=== PATIENT | male | born 1970 | race Caucasian/White ===

== ENCOUNTER 2016-10-16 08:32 | Emergency (ER) | payer OTHER ==
--- NOTE | 2016-10-16 09:33 | ED NURSING NOTES ---
Clinical Report - Nurses [address] [place] [address] 10/16/2016 8:33 [id number] Triage time 08:40. Acuity: LEVEL 4. Chief Complaint: FALL (stepped back into a hole a trailer and fell backwards). Alert. No acute distress. KENDRICK COMA SCORE: Hernando Coma Scale: 15- eyes open spontaneously (4); best verbal response- oriented x 4 (5); best motor response- obeys commands (6). --08:47 Georgina Gilmore R.N. 08:40 10/16/16. BP: 135/79. HR: 78. RR: 18. O2 saturation: 98% on room air. Temp: 98.1 F (oral). Pain level now: 01/22. --08:47 Georgina Gilmore R.N. Weight: 127 kg stated. Height/Length: 68 inches Per Patient. BMI: 42.6. --08:44 Georgina Gilmore R.N. Medications Atenolol Oral 100 mg, daily. Hydrochlorothiazide Oral 25 mg, daily. Lisinopril Oral 40 mg, daily. --08:43 Georgina Gilmore R.N. Medication/allergy information source: the patient. --08:47 Georgina Gilmore R.N. Allergies No Known Drug Allergy. --08:43 Georgina Gilmore R.N. History Arrived by private vehicle. Historian: patient. Primary physician (Alvin). Location of injuries: lower back and left leg. This occurred today (0230). Occurred at work. ( had his hard-hat on, fell 1-2 feet). No loss of consciousness. SOCIAL HX: Smoker- current status unknown (chews tobacco). Occasional alcohol use. No drug use. FALL RISK ASSESSMENT: Fall risk assessment completed. No fall risk identified. FUNCTIONAL ASSESSMENT: Functional assessment: no impairments noted. LEARNING NEEDS ASSESSMENT: The learning needs assessment revealed no barriers. --08:47 Georgina Gilmore R.N. PROBLEMS: Myofascial Strain. Substance Abuse. Hypovolemia. Renal Failure. Rhabdomyolysis. Hypertension. --08:44 Georgina Gilmore R.N. ADDITIONAL SURGERIES: Hemorrhoidectomy. Knee Surgery. --08:44 Georgina Gilmore R.N. Assessment GENERAL / NEURO / PSYCH: Alert. Oriented X 4. Appears in no acute distress. Patient appears calm and cooperative. RESPIRATORY: Respirations not labored. SKIN: Skin is warm and dry. --08:47 Georgina Gilmore R.N. Interventions ID band on patient. To treatment room. --08:47 Georgina Gilmore R.N. PHYSICAL ASSESSMENT 08:49 10/16/16. Ambulatory to room. Patient gowned. GENERAL / NEURO / PSYCH: Alert. Oriented X 4. Appears in no acute distress. RESPIRATORY: Respirations not labored. EXTREMITIES: ( was wearing a back brace). SKIN: Skin is warm and dry. --08:49 Georgina Gilmore R.N. NURSING PROGRESS NOTES 08:49 10/16/16. Patient gowned. Call light placed in reach. Side rails up x 1. Bed placed in lowest position. Brakes of bed on. --08:49 Georgina Gilmore R.N. Patient walked to [facility] with tech. --09:05 Georgina Gilmore R.N. 09:45. The patient is calm and resting quietly. Overall patient status is the same- he states feels the same. GENERAL / NEURO / PSYCH: Alert. Oriented X 4. RESPIRATORY: No respiratory distress. --11:57 Georgina Gilmore R.N. DISPOSITION / DISCHARGE Departure time: 944. Condition at departure: stable. No learning barriers present. Discharge instructions provided and reviewed with the patient. Reviewed medication(s). Prescription(s) given to the patient. Patient verbalized understanding. Written instructions provided in Kyrgyz. The patient was discharged home and unaccompanied at time of discharge. He left the Emergency Department ambulatory and via private vehicle. FALL RISK ASSESSMENT: Fall risk assessment completed. No fall risk identified. --11:57 Georgina Gilmore R.N. 09:45 10/16/16. BP: 137/94. HR: 70. RR: 18. O2 saturation: 97%. Pain level now: 10/22. --11:57 Georgina Gilmore R.N. Locked/Released at 10/16/2016 11:58 by Georgina Gilmore R.N.
--- NOTE | 2016-10-16 09:33 | ED CLINICAL REPORT ---
Clinical Report - Physicians/Mid Levels [facility] [address] [place] [place] [address] 10/16/2016 8:33 Patient: TARYN CAMERON Time Seen: 08:52. Arrived- By private vehicle. Historian- patient. HISTORY OF PRESENT ILLNESS Chief Complaint: FALL. Location of injuries- lower back and left leg. The injury occurred today about 02:30. Occurred at work. Fell 1-2 feet while walking and landed on the ground (fell into a hole). The patient complains of moderate pain. No blow to the head, neck pain, loss of consciousness or seizure. Not dazed. REVIEW OF SYSTEMS The patient complains of pain on weight bearing. No numbness, dizziness, loss of vision, hearing loss or chest pain. No difficulty breathing, weakness, headache, nausea or abdominal pain. No laceration, fever, vomiting or urinary problems. All systems otherwise negative, except as recorded above. PAST HISTORY Hypertension. PROBLEMS: Myofascial Strain. Substance Abuse. Hypovolemia. Renal Failure. Rhabdomyolysis. Hypertension. SURGERIES: Hemorrhoidectomy. Knee Surgery. SOCIAL HISTORY History of chewing tobacco use. Occasional alcohol use. No drug use. ADDITIONAL NOTES The nursing notes have been reviewed. PHYSICAL EXAM Vital Signs: 10/16/2016 08:40 BP: 135/79. HR: 78. RR: 18. O2 saturation: 98%. Temp: 98.1 F. Pain level now: 8/10. Appearance: Alert. Oriented X3. No acute distress. Head: Head non-tender. No swelling of head. No Stone's sign or raccoon eyes. Eyes: Pupils equal, round and reactive to light. EOM intact. ENT: No dental injury. Neck: Painless ROM. Non-tender. CVS: Heart sounds normal. Pulses normal. Respiratory: Breath sounds normal. Chest nontender. Abdomen: No visible injury. Soft and nontender. No mass. Back: Moderate soft-tissue tenderness in the left lower lumbar area. No vertebral point tenderness. Skin: Skin intact. Skin warm and dry. (Ecchymosis left gluteal area). Extremities: Normal inspection. Moderate bony tenderness present (left gluteal soft tissue and possibly bony tenderness in area of ecchymosis and mild swelling). Pelvis stable. Neuro: Martelle Coma Scale: 15- eyes open spontaneously (4); best verbal response- oriented x 3 (5); best motor response- obeys commands (6). Oriented X 3. No motor deficit. No sensory deficit. Reflexes normal. LABS, X-RAYS, AND EKG LS-Spine X-rays: Lumbar scoliosis. No fracture or subluxation. Views: AP and lateral. Technique: good. The X-rays were interpreted contemporaneously by me. Lt Knee X-ray: No fracture. (old surgery with screws / plate). Views: AP, lateral and oblique. Technique: good. The X-rays were interpreted contemporaneously by me. PROGRESS AND PROCEDURES Patient/family counseled. Old ED records reviewed. Disposition: Discharged. Condition: stable and improved. CLINICAL IMPRESSION Acute traumatic pain in the left lower extremity (knee)(left knee sprain). Acute traumatic lumbar back pain associated with muscle strain. Single contusion with soft tissue hematoma to the left thigh. Morbid obesity (BMI >=40) due to excess calories. Fall on same level by tripping. INSTRUCTIONS Apply ice. No driving while taking medication. You may walk and bear weight as tolerated. Warnings: GENERAL WARNINGS: Return or contact your physician immediately if your condition worsens or changes unexpectedly, if not improving as expected, or if other problems arise. Your Current Medications: CONTINUE TAKING THE FOLLOWING MEDICATIONS: Atenolol Oral : 100 mg daily. Hydrochlorothiazide Oral : 25 mg daily. Lisinopril Oral : 40 mg daily. Prescription Medications: Hydrocodone/APAP 5mg / 325mg: take 1-2 orally every 8 hours as needed for pain. Dispense ten (10). No refill. Ibuprofen 600mg tablets: take 1 tablet orally every 8 hours as needed for pain. Dispense thirty (30). No refills. Flexeril 10 mg: Take 1 orally every 8 hours as needed for muscle spasm. Dispense twenty (20). No refills. Substitution is permissible. Follow-up: Follow up with an orthopedic surgeon- as recommended by your primary care physician. Follow-up with: Taryn Esquivel MD, [facility], , [facility], [address] [place] [address], [place], [id number] Follow up Thursday as scheduled. (Electronically signed by Joshua Cobb DO 10/16/2016 10:10)
--- NOTE | 2016-10-16 09:33 | ED CLINICAL REPORT ---
Clinical Report - Physicians/Mid Levels [facility] [address] [place] [place] [address] 10/16/2016 8:33 Patient: TARYN CAMERON Time Seen: 08:52. Arrived- By private vehicle. Historian- patient. HISTORY OF PRESENT ILLNESS Chief Complaint: FALL. Location of injuries- lower back and left leg. The injury occurred today about 02:30. Occurred at work. Fell 1-2 feet while walking and landed on the ground (fell into a hole). The patient complains of moderate pain. No blow to the head, neck pain, loss of consciousness or seizure. Not dazed. REVIEW OF SYSTEMS The patient complains of pain on weight bearing. No numbness, dizziness, loss of vision, hearing loss or chest pain. No difficulty breathing, weakness, headache, nausea or abdominal pain. No laceration, fever, vomiting or urinary problems. All systems otherwise negative, except as recorded above. PAST HISTORY Hypertension. PROBLEMS: Myofascial Strain. Substance Abuse. Hypovolemia. Renal Failure. Rhabdomyolysis. Hypertension. SURGERIES: Hemorrhoidectomy. Knee Surgery. SOCIAL HISTORY History of chewing tobacco use. Occasional alcohol use. No drug use. ADDITIONAL NOTES The nursing notes have been reviewed. PHYSICAL EXAM Vital Signs: 10/16/2016 08:40 BP: 135/79. HR: 78. RR: 18. O2 saturation: 98%. Temp: 98.1 F. Pain level now: 8/10. Appearance: Alert. Oriented X3. No acute distress. Head: Head non-tender. No swelling of head. No Stone's sign or raccoon eyes. Eyes: Pupils equal, round and reactive to light. EOM intact. ENT: No dental injury. Neck: Painless ROM. Non-tender. CVS: Heart sounds normal. Pulses normal. Respiratory: Breath sounds normal. Chest nontender. Abdomen: No visible injury. Soft and nontender. No mass. Back: Moderate soft-tissue tenderness in the left lower lumbar area. No vertebral point tenderness. Skin: Skin intact. Skin warm and dry. (Ecchymosis left gluteal area). Extremities: Normal inspection. Moderate bony tenderness present (left gluteal soft tissue and possibly bony tenderness in area of ecchymosis and mild swelling). Pelvis stable. Neuro: Sabina Coma Scale: 15- eyes open spontaneously (4); best verbal response- oriented x 3 (5); best motor response- obeys commands (6). Oriented X 3. No motor deficit. No sensory deficit. Reflexes normal. LABS, X-RAYS, AND EKG LS-Spine X-rays: Lumbar scoliosis. No fracture or subluxation. Views: AP and lateral. Technique: good. The X-rays were interpreted contemporaneously by me. Lt Knee X-ray: No fracture. (old surgery with screws / plate). Views: AP, lateral and oblique. Technique: good. The X-rays were interpreted contemporaneously by me. PROGRESS AND PROCEDURES Patient/family counseled. Old ED records reviewed. Disposition: Discharged. Condition: stable and improved. CLINICAL IMPRESSION Acute traumatic pain in the left lower extremity (knee)(left knee sprain). Acute traumatic lumbar back pain associated with muscle strain. Single contusion with soft tissue hematoma to the left thigh. Morbid obesity (BMI >=40) due to excess calories. Fall on same level by tripping. INSTRUCTIONS Apply ice. No driving while taking medication. You may walk and bear weight as tolerated. Warnings: GENERAL WARNINGS: Return or contact your physician immediately if your condition worsens or changes unexpectedly, if not improving as expected, or if other problems arise. Your Current Medications: CONTINUE TAKING THE FOLLOWING MEDICATIONS: Atenolol Oral : 100 mg daily. Hydrochlorothiazide Oral : 25 mg daily. Lisinopril Oral : 40 mg daily. Prescription Medications: Hydrocodone/APAP 5mg / 325mg: take 1-2 orally every 8 hours as needed for pain. Dispense ten (10). No refill. Ibuprofen 600mg tablets: take 1 tablet orally every 8 hours as needed for pain. Dispense thirty (30). No refills. Flexeril 10 mg: Take 1 orally every 8 hours as needed for muscle spasm. Dispense twenty (20). No refills. Substitution is permissible. Follow-up: Follow up with an orthopedic surgeon- as recommended by your primary care physician. Follow-up with: Taryn Esquivel MD, [facility], , [facility], [address] [place] [address], [place], [id number] Follow up Thursday as scheduled. (Electronically signed by Joshua Cobb DO 10/16/2016 10:10)
--- NOTE | 2016-10-16 09:33 | ED ORDER SUMMARY ---
..... Patient: ATRYN CAMERON OrderSheet [facility] VisitID: [id number] [place] [address] 46y, M Registration Date/Time: 10/16/2016 ORDER SHEET Weight: 127.0 kg (stated) Allergies: No Known Drug Allergy GENERAL ORDERS: Lumbar Spine 2 or 3V Urgent (08:59 10/16/2016 [facility]) (Ack 9:03 [facility] ER Tech1) (9:12 RFay) Pelvis 1 or 2V Urgent (08:59 10/16/2016 [employer]) (Ack 9:03 IJurca ER Tech1) (9:12 RFay) Knee 4V Left Urgent (09:00 10/16/2016 [employer]) (Ack 9:03 IJur[facility] ER Tech1) (9:12 RFay) MEDICATION ORDERS: IV FLUIDS: ORDER SHEET NOTES: [Electronically signed by Joshua Cobb DO (10:10 10/16/2016)] [Electronically signed by Georgina Gilmore R.N. (11:58 10/16/2016)] [Electronically locked/signed by Georgina Gilmore R.N. (11:58 10/16/2016)]
--- NOTE | 2016-10-16 09:33 | ED NURSING NOTES ---
Clinical Report - Nurses [address] [address] [place] [address] 10/16/2016 8:33 [id number] TRIAGE Triage time 08:40. Acuity: LEVEL 4. Chief Complaint: FALL (stepped back into a hole a trailer and fell backwards). Alert. No acute distress. KENDRICK COMA SCORE: [place] Coma Scale: 15- eyes open spontaneously (4); best verbal response- oriented x 4 (5); best motor response- obeys commands (6). --08:47 Georgina Gilmore R.N. 08:40 10/16/16. BP: 135/79. HR: 78. RR: 18. O2 saturation: 98% on room air. Temp: 98.1 F (oral). Pain level now: 01/22. --08:47 Georgina Gilmore R.N. Weight: 127 kg stated. Height/Length: 68 inches Per Patient. BMI: 42.6. --08:44 Georgina Gilmore R.N. Medications Atenolol Oral 100 mg, daily. Hydrochlorothiazide Oral 25 mg, daily. Lisinopril Oral 40 mg, daily. --08:43 Georgina Gilmore R.N. Medication/allergy information source: the patient. --08:47 Georgina Gilmore R.N. Allergies No Known Drug Allergy. --08:43 Georgina Gilmore R.N. History Arrived by private vehicle. Historian: patient. Primary physician (Alvin). Location of injuries: lower back and left leg. This occurred today (0230). Occurred at work. ( had his hard-hat on, fell 1-2 feet). No loss of consciousness. SOCIAL HX: Smoker- current status unknown (chews tobacco). Occasional alcohol use. No drug use. FALL RISK ASSESSMENT: Fall risk assessment completed. No fall risk identified. FUNCTIONAL ASSESSMENT: Functional assessment: no impairments noted. LEARNING NEEDS ASSESSMENT: The learning needs assessment revealed no barriers. --08:47 Georgina Gilmore R.N. PROBLEMS: Myofascial Strain. Substance Abuse. Hypovolemia. Renal Failure. Rhabdomyolysis. Hypertension. --08:44 Georgina Gilmore R.N. ADDITIONAL SURGERIES: Hemorrhoidectomy. Knee Surgery. --08:44 Georgina Gilmore R.N. Assessment GENERAL / NEURO / PSYCH: Alert. Oriented X 4. Appears in no acute distress. Patient appears calm and cooperative. RESPIRATORY: Respirations not labored. SKIN: Skin is warm and dry. --08:47 Georgina Gilmore R.N. Interventions ID band on patient. To treatment room. --08:47 Georgina Gilmore R.N. PHYSICAL ASSESSMENT 08:49 10/16/16. Ambulatory to room. Patient gowned. GENERAL / NEURO / PSYCH: Alert. Oriented X 4. Appears in no acute distress. RESPIRATORY: Respirations not labored. EXTREMITIES: ( was wearing a back brace). SKIN: Skin is warm and dry. --08:49 Georgina Gilmore R.N. NURSING PROGRESS NOTES 08:49 10/16/16. Patient gowned. Call light placed in reach. Side rails up x 1. Bed placed in lowest position. Brakes of bed on. --08:49 Georgina Gilmore R.N. Patient walked to [facility] with tech. --09:05 Georgina Gilmore R.N. 09:45. The patient is calm and resting quietly. Overall patient status is the same- he states feels the same. GENERAL / NEURO / PSYCH: Alert. Oriented X 4. RESPIRATORY: No respiratory distress. --11:57 Georgina Gilmore R.N. DISPOSITION / DISCHARGE Departure time: 944. Condition at departure: stable. No learning barriers present. Discharge instructions provided and reviewed with the patient. Reviewed medication(s). Prescription(s) given to the patient. Patient verbalized understanding. Written instructions provided in Luxembourgish. The patient was discharged home and unaccompanied at time of discharge. He left the Emergency Department ambulatory and via private vehicle. FALL RISK ASSESSMENT: Fall risk assessment completed. No fall risk identified. --11:57 Georgina Gilmore R.N. 09:45 10/16/16. BP: 137/94. HR: 70. RR: 18. O2 saturation: 97%. Pain level now: 10/22. --11:57 Georgina Gilmore R.N. Locked/Released at 10/16/2016 11:58 by Georgina Gilmore R.N.
--- NOTE | 2016-10-16 09:33 | ED ORDER SUMMARY ---
..... Patient: TARYN CAMERON OrderSheet [facility] VisitID: [id number] [place] [address] 46y, M Registration Date/Time: 10/16/2016 ORDER SHEET Weight: 127.0 kg (stated) Allergies: No Known Drug Allergy GENERAL ORDERS: Lumbar Spine 2 or 3V Urgent (08:59 [facility] (Ack 9:03 IJurca ER Tech1) (9:12 RFay) Pelvis 1 or 2V Urgent (08:59 10/16/2016 [employer]) (Ack 9:03 IJurca ER Tech1) (9:12 RFay) Knee 4V Left Urgent (09:00 10/16/2016 [employer]) (Ack 9:03 IJurca ER Tech1) (9:12 RFay) MEDICATION ORDERS: IV FLUIDS: ORDER SHEET NOTES: [Electronically signed by Joshua Cobb DO (10:10 10/16/2016)] [Electronically signed by Georgina Gilmore R.N. (11:58 10/16/2016)] [Electronically locked/signed by Georgina Gilmore R.N. (11:58 10/16/2016)]
--- NOTE | 2016-10-16 10:00 | DIAGNOSTIC IMAGING REPORT ---
PROCEDURE: XR KNEE 4 VIEWS - LEFT INDICATION: TRAUMA/INJURY TECHNIQUE: Four views. COMPARISON: None. FINDINGS: There is a staple and a medial tibial plateau. There is no acute fracture dislocation. Mild spur formation of the patellofemoral compartment. Mild narrowing of the medial compartment with mild chondrocalcinosis. No effusion IMPRESSION: 1. No acute changes 2. Postsurgical changes of the proximal 07/18 mild degenerative changes and narrowing of the medial compartment 4. Chondrocalcinosis which may indicate CPPD (calcium pyrophosphate deposition disease).
--- NOTE | 2016-10-16 10:01 | DIAGNOSTIC IMAGING REPORT ---
PROCEDURE: XR PELVIS 1 OR 2 VIEWS INDICATION: TRAUMA/INJURY TECHNIQUE: AP view. COMPARISON: None. FINDINGS: No fracture or dislocation. No suspicious osseous lesions. Normal bilateral hip joints. Soft tissues are unremarkable. IMPRESSION: 1. Negative pelvis.
--- NOTE | 2016-10-16 10:02 | DIAGNOSTIC IMAGING REPORT ---
PROCEDURE: XR LUMBAR SPINE 2 OR 3 VIEWS INDICATION: TRAUMA/INJURY TECHNIQUE: Three views. COMPARISON: None. FINDINGS: Minor dextroconvex curvature of the spine. Normal alignment without fracture. Mild narrowing of the L2-3 and L4-5 disc spaces. Mild spur formation. Straightening of the lumbar spine. Soft tissues are normal. IMPRESSION: 1. Mild degenerative changes with multilevel disc space narrowing 2. Mild dextroconvex scoliosis 3. Loss of lordosis suggestive of muscular spasm.
--- NOTE | 2016-10-16 11:58 | ED DISCHARGE INSTRUCTIONS ---
Patient: TARYN CAMERON General Instructions [facility] VisitID: [id number] [place] [address] 46y, M Registration Date/Time: 10/16/2016 Acute traumatic pain in the left lower extremity (knee)(left knee sprain). Acute traumatic lumbar back pain associated with muscle strain. Single contusion with soft tissue hematoma to the left thigh. Morbid obesity (BMI >=40) due to excess calories. Fall on same level by tripping. INSTRUCTIONS Apply ice. No driving while taking medication. You may walk and bear weight as tolerated. Warnings: GENERAL WARNINGS: Return or contact your physician immediately if your condition worsens or changes unexpectedly, if not improving as expected, or if other problems arise. Your Current Medications: CONTINUE TAKING THE FOLLOWING MEDICATIONS: Atenolol Oral : 100 mg daily. Hydrochlorothiazide Oral : 25 mg daily. Lisinopril Oral : 40 mg daily. Prescription Medications: Hydrocodone/APAP 5mg / 325mg: take 1-2 orally every 8 hours as needed for pain. Dispense ten (10). No refill. Ibuprofen 600mg tablets: take 1 tablet orally every 8 hours as needed for pain. Dispense thirty (30). No refills. Flexeril 10 mg: Take 1 orally every 8 hours as needed for muscle spasm. Dispense twenty (20). No refills. Substitution is permissible. Follow-up: Follow up with an orthopedic surgeon- as recommended by your primary care physician. Follow-up with: Taryn Esquivel MD, [facility], , [place] [address] Follow up Thursday as scheduled. ADDITIONAL INFORMATION Arthralgia Arthralgia is the term for pain in or around the joint. It is not a disease but a symptom. This may involve one or more joints. Sometimes arthralgias move from joint to joint. There are many causes for joint pain. These include: Injury Osteoarthritis (from wearing out of the joint surface) Rheumatoid arthritis (an autoimmune disease) Gout (inflammation of the joint due to crystals in the joint fluid) Infection inside the joint Bursitis (inflammation of the fluid-filled sacs around the joint) Lupus and other collagen-vascular disease Home Care: Rest the involved joint(s) until your symptoms improve. You may use acetaminophen (Tylenol) or ibuprofen (Motrin, Advil) to control pain, unless another pain medicine was prescribed. [NOTE: If you have chronic liver or kidney disease or ever had a stomach ulcer or GI bleeding, talk with your doctor before using these medicines.] Follow Up with your doctor or as advised by our staff. [NOTE: If you had an X-ray it will be reviewed by a specialist. You will be notified of any new findings that may affect your care.] Return Promptly or contact your doctor if any of the following occurs: Pain increases Pain moves to other joints New rash appears Fever of 100.4F (38C) or higher, or as directed by your healthcare provider Mechanical Fall You have had a fall today. It appears that the cause is mechanical. That means that you slipped, tripped or lost your balance. If your fall had been due to fainting or a seizure, further tests would be required. Home Care: Rest today and resume your normal activities when you are feeling back to normal. If you were injured during the fall, follow the advice from your doctor regarding care of your injury. You may use acetaminophen (Tylenol) or ibuprofen (Motrin, Advil) to control pain, unless another pain medicine was prescribed. [NOTE: If you have chronic liver or kidney disease or ever had a stomach ulcer or GI bleeding, talk with your doctor before using these medicines.] Fall Prevention: Was there anything that caused your fall that can be fixed, removed, or replaced? Make your home safe by keeping walkways clear of objects you may trip over. Use non-slip pads under rugs. Do not walk in poorly lit areas. Do not stand on chairs or wobbly ladders. Use caution when reaching overhead or looking upward. This position can cause a loss of balance. Be sure your shoes fit properly, have non-slip bottoms and are in good condition. Be cautious when going up and down curbs, and walking on uneven sidewalks. If your balance is poor, consider using a cane or walker. Stay as active as you can. Balance, flexibility, strength, and endurance all come from exercise. They all play a role in preventing falls. Follow Up with your doctor or as advised by our staff. Get Prompt Medical Attention if any of the following occur: Repeated mechanical falls, or unexplained falls Dizziness, fainting or seizure Severe headache Chest pain or shortness of breath Palpitations (very rapid or very slow or irregular heartbeat) Blood in vomit, stools (black or red color) Weakness of an arm or leg or one side of the face Difficulty with speech or vision Back Pain [Acute Or Chronic] Back pain is usually caused by an injury to the muscles or ligaments of the spine. Sometimes the disks that separate each bone in the spine may bulge and cause pain by pressing on a nearby nerve. Back pain may also appear after a sudden twisting/bending force (such as in a car accident), after a simple awkward movement, or lifting something heavy with poor body positioning. In either case, muscle spasm is often present and adds to the pain. Acute back pain usually gets better in one to two weeks. Back pain related to disk disease, arthritis in the spinal joints or spinal stenosis (narrowing of the spinal canal) can become chronic and last for months or years. Unless you had a physical injury (for example, a car accident or fall) X-rays are usually not ordered for the initial evaluation of back pain. If pain continues and does not respond to medical treatment, x-rays and other tests may be performed at a later time. Home Care: You may need to stay in bed the first few days. But, as soon as possible, begin sitting or walking to avoid problems with prolonged bed rest (muscle weakness, worsening back stiffness and pain, blood clots in the legs). When in bed, try to find a position of comfort. A firm mattress is best. Try lying flat on your back with pillows under your knees. You can also try lying on your side with your knees bent up towards your chest and a pillow between your knees. Avoid prolonged sitting. This puts more stress on the lower back than standing or walking. During the first two days after injury, apply an ICE PACK to the painful area for 20 minutes every 2-4 hours. This will reduce swelling and pain. HEAT (hot shower, hot bath or heating pad) works well for muscle spasm. You can start with ice, then switch to heat after two days. Some patients feel best alternating ice and heat treatments. Use the one method that feels the best to you. You may use acetaminophen (Tylenol) or ibuprofen (Motrin, Advil) to control pain, unless another pain medicine was prescribed. [NOTE: If you have chronic liver or kidney disease or ever had a stomach ulcer or GI bleeding, talk with your doctor before using these medicines.] Be aware of safe lifting methods and do not lift anything over 15 pounds until all the pain is gone. Follow Up with your doctor or this facility if your symptoms do not start to improve after one week. Physical therapy may be needed. [NOTE: If X-rays were taken, they will be reviewed by a radiologist. You will be notified of any new findings that may affect your care.] Get Prompt Medical Attention if any of the following occur: Pain becomes worse or spreads to your legs Weakness or numbness in one or both legs Loss of bowel or bladder control Numbness in the groin or genital area Hydrocodone Bitartrate, Acetaminophen Oral tablet What is this medicine? ACETAMINOPHEN; HYDROCODONE (a set a MILTON celia fen; marry droe KOE done) is a pain reliever. It is used to treat mild to moderate pain. How should I use this medicine? Take this medicine by mouth. Swallow it with a full glass of water. Follow the directions on the prescription label. If the medicine upsets your stomach, take the medicine with food or milk. Do not take more than you are told to take. Talk to your cook's assistant regarding the use of this medicine in children. This medicine is not approved for use in children. What side effects may I notice from receiving this medicine? Side effects that you should report to your doctor or health long term care administrator as soon as possible: allergic reactions like skin rash, itching or hives, swelling of the face, lips, or tongue breathing problems confusion feeling faint or lightheaded, falls stomach pain yellowing of the eyes or skin Side effects that usually do not require medical attention (report to your doctor or health long term care administrator if they continue or are bothersome): nausea, vomiting stomach upset What may interact with this medicine? alcohol antihistamines isoniazid medicines for depression, anxiety, or psychotic disturbances medicines for sleep muscle relaxants naltrexone narcotic medicines (opiates) for pain phenobarbital ritonavir tramadol What if I miss a dose? If you miss a dose, take it as soon as you can. If it is almost time for your next dose, take only that dose. Do not take double or extra doses. Where should I keep my medicine? Keep out of the reach of children. This medicine can be abused. Keep your medicine in a safe place to protect it from theft. Do not share this medicine with anyone. Selling or giving away this medicine is dangerous and against the law. Store at room temperature between 15 and 30 degrees C (59 and 86 degrees F). Protect from light. Keep container tightly closed. Throw away any unused medicine after the expiration date. Discard unused medicine and used packaging carefully. Pets and children can be harmed if they find used or lost packages. What should I tell my health care provider before I take this medicine? They need to know if you have any of these conditions: brain tumor Crohn's disease, inflammatory bowel disease, or ulcerative colitis drink more than 3 alcohol-containing drinks per day drug abuse or addiction head injury heart or circulation problems kidney disease or problems going to the bathroom liver disease lung disease, asthma, or breathing problems an unusual or allergic reaction to acetaminophen, hydrocodone, other opioid analgesics, other medicines, foods, dyes, or preservatives or trying to get breast-feeding What should I watch for while using this medicine? Tell your doctor or health long term care administrator if your pain does not go away, if it gets worse, or if you have new or a different type of pain. You may develop tolerance to the medicine. Tolerance means that you will need a higher dose of the medicine for pain relief. Tolerance is normal and is expected if you take the medicine for a long time. Do not suddenly stop taking your medicine because you may develop a severe reaction. Your body becomes used to the medicine. This does NOT mean you are addicted. Addiction is a behavior related to getting and using a drug for a non-medical reason. If you have pain, you have a medical reason to take pain medicine. Your doctor will tell you how much medicine to take. If your doctor wants you to stop the medicine, the dose will be slowly lowered over time to avoid any side effects. You may get drowsy or dizzy when you first start taking the medicine or change doses. Do not drive, use machinery, or do anything that may be dangerous until you know how the medicine affects you. Stand or sit up slowly. There are different types of narcotic medicines (opiates) for pain. If you take more than one type at the same time, you may have more side effects. Give your health care provider a list of all medicines you use. Your doctor will tell you how much medicine to take. Do not take more medicine than directed. Call emergency for help if you have problems breathing. The medicine will cause constipation. Try to have a bowel movement at least every 2 to 3 days. If you do not have a bowel movement for 3 days, call your doctor or health long term care administrator. Too much acetaminophen can be very dangerous. Do not take Tylenol (acetaminophen) or medicines that contain acetaminophen with this medicine. Many non-prescription medicines contain acetaminophen. Always read the labels carefully. Ibuprofen Oral tablet What is this medicine? IBUPROFEN (eye BYOO proe fen) is a non-steroidal anti-inflammatory drug (NSAID). It is used for dental pain, fever, headaches or migraines, osteoarthritis, rheumatoid arthritis, or painful monthly periods. It can also relieve minor aches and pains caused by a cold, flu, or sore throat. How should I use this medicine? Take this medicine by mouth with a glass of water. Follow the directions on the prescription label. Take this medicine with food if your stomach gets upset. Try to not lie down for at least 10 minutes after you take the medicine. Take your medicine at regular intervals. Do not take your medicine more often than directed. A special MedGuide will be given to you by the pharmacist with each prescription and refill. Be sure to read this information carefully each time. Talk to your cook's assistant regarding the use of this medicine in children. Special care may be needed. What side effects may I notice from receiving this medicine? Side effects that you should report to your doctor or health long term care administrator as soon as possible: allergic reactions like skin rash, itching or hives, swelling of the face, lips, or tongue black or bloody stools, blood in the urine or in vomit breathing problems changes in vision chest pain general ill feeling or flu-like symptoms nausea or vomiting redness, blistering, peeling or loosening of the skin, including inside the mouth slurred speech or weakness on one side of the body stomach pain unexplained weight gain or swelling unusually weak or tired yellowing of eyes or skin Side effects that usually do not require medical attention (report to your doctor or health long term care administrator if they continue or are bothersome): constipation or diarrhea dizziness gas or heartburn stomach upset What may interact with this medicine? Do not take this medicine with any of the following medications: cidofovir ketorolac methotrexate pemetrexed This medicine may also interact with the following medications: alcohol aspirin diuretics lithium other drugs for inflammation like prednisone warfarin What if I miss a dose? If you miss a dose, take it as soon as you can. If it is almost time for your next dose, take only that dose. Do not take double or extra doses. Where should I keep my medicine? Keep out of the reach of children. Store at room temperature between 15 and 30 degrees C (59 and 86 degrees F). Keep container tightly closed. Throw away any unused medicine after the expiration date. What should I tell my health care provider before I take this medicine? They need to know if you have any of these conditions: asthma cigarette smoker drink more than 3 alcohol containing drinks a day heart disease or circulation problems such as heart failure or leg edema (fluid retention) high blood pressure kidney disease liver disease stomach bleeding or ulcers an unusual or allergic reaction to ibuprofen, aspirin, other NSAIDS, other medicines, foods, dyes, or preservatives or trying to get breast-feeding What should I watch for while using this medicine? Tell your doctor or healthcare professional if your symptoms do not start to get better or if they get worse. This medicine does not prevent heart attack or stroke. In fact, this medicine may increase the chance of a heart attack or stroke. The chance may increase with longer use of this medicine and in people who have heart disease. If you take aspirin to prevent heart attack or stroke, talk with your doctor or health long term care administrator. Do not take other medicines that contain aspirin, ibuprofen, or naproxen with this medicine. Side effects such as stomach upset, nausea, or ulcers may be more likely to occur. Many medicines available without a prescription should not be taken with this medicine. This medicine can cause ulcers and bleeding in the stomach and intestines at any time during treatment. Ulcers and bleeding can happen without warning symptoms and can cause . To reduce your risk, do not smoke cigarettes or drink alcohol while you are taking this medicine. You may get drowsy or dizzy. Do not drive, use machinery, or do anything that needs mental alertness until you know how this medicine affects you. Do not stand or sit up quickly, especially if you are an older patient. This reduces the risk of dizzy or fainting spells. This medicine can cause you to bleed more easily. Try to avoid damage to your teeth and gums when you brush or floss your teeth. Cyclobenzaprine Hydrochloride Oral tablet What is this medicine? CYCLOBENZAPRINE (glenn croft) is a muscle relaxer. It is used to treat muscle pain, spasms, and stiffness. How should I use this medicine? Take this medicine by mouth with a glass of water. Follow the directions on the prescription label. If this medicine upsets your stomach, take it with food or milk. Take your medicine at regular intervals. Do not take it more often than directed. Talk to your cook's assistant regarding the use of this medicine in children. Special care may be needed. What side effects may I notice from receiving this medicine? Side effects that you should report to your doctor or health long term care administrator as soon as possible: allergic reactions like skin rash, itching or hives, swelling of the face, lips, or tongue chest pain fast heartbeat hallucinations seizures vomiting Side effects that usually do not require medical attention (report to your doctor or health long term care administrator if they continue or are bothersome): headache What may interact with this medicine? Do not take this medicine with any of the following medications: cisapride droperidol flecainide grepafloxacin halofantrine levomethadyl MAOIs like Carbex, Eldepryl, Marplan, Nardil, and Parnate nilotinib pimozide probucol sertindole This medicine may also interact with the following medications: abarelix alcohol contrast dyes dolasetron guanethidine medicines for cancer medicines for depression, anxiety, or psychotic disturbances medicines to treat an irregular heartbeat medicines used for sleep or numbness during surgery or procedure methadone octreotide ondansetron palonosetron phenothiazines like chlorpromazine, mesoridazine, prochlorperazine, thioridazine some medicines for infection like alfuzosin, chloroquine, clarithromycin, levofloxacin, mefloquine, pentamidine, troleandomycin tramadol vardenafil What if I miss a dose? If you miss a dose, take it as soon as you can. If it is almost time for your next dose, take only that dose. Do not take double or extra doses. Where should I keep my medicine? Keep out of the reach of children. Store at room temperature between 15 and 30 degrees C (59 and 86 degrees F). Keep container tightly closed. Throw away any unused medicine after the expiration date. What should I tell my health care provider before I take this medicine? They need to know if you have any of these conditions: heart disease, irregular heartbeat, or previous heart attack liver disease thyroid problem an unusual or allergic reaction to cyclobenzaprine, tricyclic antidepressants, lactose, other medicines, foods, dyes, or preservatives or trying to get breast-feeding What should I watch for while using this medicine? Check with your doctor or health long term care administrator if your condition does not improve within 1 to 3 weeks. You may get drowsy or dizzy when you first start taking the medicine or change doses. Do not drive, use machinery, or do anything that may be dangerous until you know how the medicine affects you. Stand or sit up slowly. Your mouth may get dry. Drinking water, chewing sugarless gum, or sucking on hard candy may help. You have been given the following additional information: Arthralgia Fall, Mechanical Back Pain (Acute Or Chronic) Hydrocodone Bitartrate, Acetaminophen Oral tablet Ibuprofen Oral tablet Cyclobenzaprine Hydrochloride Oral tablet No driving while taking medication. You may walk and bear weight as tolerated. (Electronically signed by Joshua Cobb DO 10/16/2016 10:10)
--- NOTE | 2016-10-16 11:59 | ED MAR SUMMARY ---
..... Medication Administration Record [facility] [address] [place] [address] Patient: TARYN CAMERON Visit ID: [id number] 46y, M Weight: 127.0 kg Height/Length: 68 in BMI: 42.6 ALLERGIES: No Known Drug Allergy
--- NOTE | 2016-10-16 11:59 | ED MED RECONCILIATION SUMMARY ---
Patient: TARYN CAMERON Medication Reconciliation Report [facility] VisitID: [id number] [address] [place] [address] 46y, M Registration Date/Time: 10/16/2016 Weight: 127.0 kg Height/Length: 68 in. BMI: 42.6 ALLERGIES: No Known Drug Allergy The patient's Home Medications are listed below: CONTINUE TAKING THE FOLLOWING MEDICATIONS: Atenolol Oral 100 mg, daily Hydrochlorothiazide Oral 25 mg, daily Lisinopril Oral 40 mg, daily The source(s) of the original Home Medication information: patient The following Medications were given to the patient in the Emergency Department: None. The following Medications were prescribed to the patient: Hydrocodone/APAP 5mg / 325mg: take 1-2 orally every 8 hours as needed for pain. Dispense ten (10). No refill. -- Joshua Cobb DO Ibuprofen 600mg tablets: take 1 tablet orally every 8 hours as needed for pain. Dispense thirty (30). No refills. -- Joshua Cobb DO Flexeril 10 mg: Take 1 orally every 8 hours as needed for muscle spasm. Dispense twenty (20). No refills. Substitution is permissible. -- Joshua Cobb DO
--- NOTE | 2016-10-16 11:59 | ED MAR SUMMARY ---
..... Medication Administration Record [facility] [address] [place] [address] Patient: TARYN CAMERON Visit ID: [id number] 46y, M Weight: 127.0 kg Height/Length: 68 in BMI: 42.6 ALLERGIES: No Known Drug Allergy
--- NOTE | 2016-10-16 11:59 | ED MED RECONCILIATION SUMMARY ---
Patient: TARYN CAMERON Medication Reconciliation Report [facility] VisitID: [id number] [address] [place] [address] 46y, M Registration Date/Time: 10/16/2016 Weight: 127.0 kg Height/Length: 68 in. BMI: 42.6 ALLERGIES: No Known Drug Allergy The patient's Home Medications are listed below: CONTINUE TAKING THE FOLLOWING MEDICATIONS: Atenolol Oral 100 mg, daily Hydrochlorothiazide Oral 25 mg, daily Lisinopril Oral 40 mg, daily The source(s) of the original Home Medication information: patient The following Medications were given to the patient in the Emergency Department: None. The following Medications were prescribed to the patient: Hydrocodone/APAP 5mg / 325mg: take 1-2 orally every 8 hours as needed for pain. Dispense ten (10). No refill. -- Joshua Cobb DO Ibuprofen 600mg tablets: take 1 tablet orally every 8 hours as needed for pain. Dispense thirty (30). No refills. -- Joshua Cobb DO Flexeril 10 mg: Take 1 orally every 8 hours as needed for muscle spasm. Dispense twenty (20). No refills. Substitution is permissible. -- Joshua Cobb DO
== END 2016-10-16 09:45 | disposition home or self-care (01) ==
LOC: ED SRH 08:32
DX: S39.012A Strain of muscle, fascia and tendon of lower back, initial encounter (principal); S83.92XA Sprain of unspecified site of left knee, initial encounter; S70.12XA Contusion of left thigh, initial encounter; W17.2XXA Fall into hole, initial encounter; Y93.9 Activity, unspecified; Y92.9 Unspecified place or not applicable; Y99.0 Civilian activity done for income or pay; E66.01 Morbid (severe) obesity due to excess calories; Z68.41 Body mass index [BMI] 40.0-44.9, adult; I10 Essential (primary) hypertension